=== PATIENT | female | born 1960 | race Caucasian/White ===

== ENCOUNTER 2018-11-09 12:05 | Inpatient (IN) | payer OTHER ==
[~2018-11-09] VITALS: Ht 157.5 cm; Wt 95.0 kg
[2018-11-09] MEDS ORDERED: SOD CHLORIDE 0.9% 1,000 ML IV STA (12:09)
[2018-11-09] MEDS ORDERED: ONDANSETRON 4 MG INJ IV STA (12:14)
[2018-11-09] MEDS ORDERED: morphine 4 MG/ML VIAL IV STA (12:14)
[2018-11-09] MEDS ORDERED: MINO100C PO (13:34)
[2018-11-09] MEDS ORDERED: METR250T31 PO (13:34)
[2018-11-09] MEDS ORDERED: ONDANSETRON 4 MG INJ IV PRN (15:00)
[2018-11-09] MEDS ORDERED: ACETAMINOPHEN 325 MG TAB PO PRN (15:00)
[2018-11-09] MEDS ORDERED: NACL 0.9% 3 ML SYG IV SCH (15:30)
[2018-11-09] MEDS: ONDANSETRON 4 MG INJ IV PRN (15:44)
[2018-11-09] MEDS ORDERED: SODIUM CHLORIDE 0.9% 1L BAG IV* STA (15:56)
[2018-11-09] MEDS ORDERED: PIPER-TAZO 3.375 GM IV (PMX) 100 ML IVPB STA (15:56)
--- NOTE | 2018-11-09 16:00 | ERD ---
ER Documentation Chief Complaint Chief Complaint DIZZINESS AND VOMITING TODAY HPI Patient is a 58-year-old female with prediabetes who presents with nausea and vomiting. She was brought in by ambulance. She felt weak and dizzy. She has felt sick for the past few days. She was bradycardic in the 40s and her blood pressure was low per paramedics. The blood pressure has improved upon arrival. The patient has had no treatment as of yet. The patient has abdominal pain diffusely. She has no fevers. Upon review of old medical records this is the patient's first visit to the emergency department. ROS All systems reviewed and are negative except as per history of present illness. Medications Home Meds Reported Medications Minocycline Hcl* (Minocycline Hcl*) 100 Mg Capsule, 100 MG PO BID, CAP 11/09/18 Metronidazole* (Metronidazole*) 250 Mg Tablet, 250 MG PO QID, TAB 11/09/18 Allergies Allergies: Coded Allergies: No Known Allergy (Unverified , 11/09/18) PMhx/Soc Medical and Surgical Hx: pt denies Medical Hx Hx Alcohol Use: No Hx Substance Use: No Hx Tobacco Use: No Smoking Status: Never smoker FmHx Family History: No coronary disease Physical Exam Vitals Vital Signs Date Temp Pulse Resp B/P (MAP) Pulse Ox O2 O2 Flow FiO2 Time Delivery Rate 11/09/18 97.8 48 18 98/64 (75) 100 Room Air 13:13 11/09/18 97.8 50 18 92/70 (77) 100 12:05 Physical Exam Const: No acute distress Head: Atraumatic Eyes: Normal Conjunctiva ENT: Normal External Ears, Nose and Mouth. Neck: Full range of motion. No meningismus. Resp: Clear to auscultation bilaterally Cardio: Regular rate and rhythm, no murmurs Abd: Diffuse tenderness to palpation without rebound or guarding Skin: No petechiae or rashes Back: No midline or flank tenderness Ext: No cyanosis, or edema Neur: Awake and alert Psych: Normal Mood and Affect Result Diagram: 11/09/18 1229 11/09/18 1229 Results 24 hrs Laboratory Tests Test 11/09/18 12:29 White Blood Count 12.5 10^3/ul Red Blood Count 4.13 10^6/ul Hemoglobin 13.0 g/dl Hematocrit 39.7 % Mean Corpuscular Volume 96.1 fl Mean Corpuscular Hemoglobin 31.5 pg Mean Corpuscular Hemoglobin Concent 32.7 g/dl Red Cell Distribution Width 13.9 % Platelet Count 195 10^3/UL Mean Platelet Volume 10.7 fl Immature Granulocytes % 0.500 % Neutrophils % 74.4 % Lymphocytes % 19.0 % Monocytes % 5.2 % Eosinophils % 0.6 % Basophils % 0.3 % Nucleated Red Blood Cells % 0.0 /100WBC Immature Granulocytes # 0.060 10^3/ul Neutrophils # 9.3 10^3/ul Lymphocytes # 2.4 10^3/ul Monocytes # 0.7 10^3/ul Eosinophils # 0.1 10^3/ul Basophils # 0.0 10^3/ul Nucleated Red Blood Cells # 0.0 10^3/ul Sodium Level 142 mmol/L Potassium Level 3.5 mmol/L Chloride Level 108 mmol/L Carbon Dioxide Level 23 mmol/L Anion Gap 11 Blood Urea Nitrogen 10 mg/dl Creatinine 0.59 mg/dl Est Glomerular Filtrat Rate mL/min > 60 mL/min Glucose Level 164 mg/dl Calcium Level 9.4 mg/dl Total Bilirubin 1.3 mg/dl Direct Bilirubin 0.80 mg/dl Indirect Bilirubin 0.5 mg/dl Aspartate Amino Transf (AST/SGOT) 192 IU/L Alanine Aminotransferase (ALT/SGPT) 189 IU/L Alkaline Phosphatase 184 IU/L Lactate Dehydrogenase 776 IU/L Troponin I < 0.012 ng/ml Total Protein 7.5 g/dl Albumin 4.1 g/dl Lipase 04666 U/L Current Medications Medications Dose Sig/Ofelia Start Time Status Last (Trade) Ordered Route PRN Stop Time Admin Dose Reason Admin Sodium 1,000 ml @ Q1H STAT 11/09/18 DC 11/09/18 Chloride 1,000 mls/hr IV 12:09 12:42 11/09/18 13:08 Morphine 4 mg ONCE STAT 11/09/18 DC Sulfate IV 12:14 (morphine) 11/09/18 12:16 Ondansetron 4 mg ONCE STAT 11/09/18 DC 11/09/18 HCl (Zofran IV 12:14 12:42 Inj) 11/09/18 12:16 Ondansetron 4 mg ER BRIDGE 11/09/18 DC HCl (Zofran PRN IV 15:00 Inj) NAUSEA/VOMITI 11/09/18 15:23 NG 650 mg ER BRIDGE 11/09/18 Acetaminophen PRN PO 15:00 (Tylenol .MILD PAIN 11/10/18 14:59 Tab) 1-3 OR TEMP Sodium 1,000 ml @ Q6H40M IV 11/09/18 Chloride 150 mls/hr 15:30 IV Flush 3 ml PER 11/09/18 (NS 3 ml) PROTOCOL IV 15:30 Ondansetron 4 mg Q6H PRN 11/09/18 HCl (Zofran IV 15:30 Inj) NAUSEA/VOMITI NG Morphine 2 mg Q4H PRN 11/09/18 Sulfate IV .SEVERE 15:30 (morphine) PAIN 7-10 Heparin 5,000 unit Q12 SC 11/09/18 Sodium 21:00 (Porcine) (Heparin (5000 Units/1ml)) Procedures/MDM Ultrasound read by radiology. CT abdomen pelvis shows pancreatitis with phlegmon per radiology. EKG read by me: Rate/Rhythm: Sinus bradycardia Intervals: Normal Impression: Bradycardia without ischemia Patient is a 58-year-old female who presents with pancreatitis. The patient was found to have a lipase of greater than 41,000. At this point I doubt sepsis. Lactic acid and blood cultures have been ordered as well as 30 ml/kg fluid bolus and Zosyn. The patient will be admitted to the care of the panel team to a telemetry bed as the patient also has bradycardia. However the bradycardia is sinus at this time. Critical Care: Time: 35 minutes excluding all billable procedures. Treatments/Evaluations: Close monitoring and treatment of unstable vital signs, cardiorespiratory, and neurologic status, while maintaining tight balance of fluid, respiratory, and cardiac interventions. Departure Diagnosis: Primary Impression: Pancreatitis Chronicity: acute Pancreatitis type: unspecified pancreatitis type Acute pancreatitis complication: unspecified Qualified Codes: K85.90 - Acute pancreatitis without necrosis or infection, unspecified Additional Impression: Bradycardia Condition: Serious ILEANA TERESA MD Nov 09, 2018 16:00
--- NOTE | 2018-11-09 16:03 | HP ---
Date/Time of Note Date/Time of Note DATE: 11/09/18 TIME: 16:01 Assessment/Plan VTE Prophylaxis SCD applied (from Nsg): Yes Pharmacological prophylaxis: heparin Lines/Catheters IV Catheter Type (from Nrsg): Saline Lock Assessment/Plan Hospital Course 58 yo female with acute pancreatitis likely from gall stone with CT showing poss ible phlegmon - Continue IV fluids - Zosyn given finding of phlegmon - ERCP consideration per Dr Ferguson - Eventual cholecystectomy per gen surgery - Pain control Result Diagram: 11/09/18 1229 11/09/18 1229 Results 24hrs Laboratory Tests Test 11/09/18 12:29 White Blood Count 12.5 H Red Blood Count 4.13 L Hemoglobin 13.0 Hematocrit 39.7 Mean Corpuscular Volume 96.1 Mean Corpuscular Hemoglobin 31.5 Mean Corpuscular Hemoglobin Concent 32.7 Red Cell Distribution Width 13.9 Platelet Count 195 Mean Platelet Volume 10.7 H Immature Granulocytes % 0.500 H Neutrophils % 74.4 Lymphocytes % 19.0 Monocytes % 5.2 Eosinophils % 0.6 Basophils % 0.3 Nucleated Red Blood Cells % 0.0 Immature Granulocytes # 0.060 H Neutrophils # 9.3 H Lymphocytes # 2.4 Monocytes # 0.7 Eosinophils # 0.1 Basophils # 0.0 Nucleated Red Blood Cells # 0.0 Sodium Level 142 Potassium Level 3.5 Chloride Level 108 Carbon Dioxide Level 23 Anion Gap 11 Blood Urea Nitrogen 10 Creatinine 0.59 Est Glomerular Filtrat Rate mL/min > 60 Glucose Level 164 Calcium Level 9.4 Total Bilirubin 1.3 Direct Bilirubin 0.80 H Indirect Bilirubin 0.5 Aspartate Amino Transf (AST/SGOT) 192 H Alanine Aminotransferase (ALT/SGPT) 189 H Alkaline Phosphatase 184 H Lactate Dehydrogenase 776 H Troponin I < 0.012 Total Protein 7.5 Albumin 4.1 Lipase 83515 H HPI/ROS Admit Date/Time Admit Date/Time Hx of Present Illness 58 yo female wtih abdominal pain and nausea Was in usual state of good health until today. Developed pain in epigastrium and has had vomiting. No fevers. Previously completely well. In ED found to have acute pancreatitis and CT showing possible phlegmon ROS Constitutional: no complaints, improved Eyes: no complaints ENT: no complaints Respiratory: no complaints Cardiovascular: no complaints Gastrointestinal: no complaints Genitourinary: no complaints Musculoskeletal: no complaints Skin: no complaints Neurologic: no complaints Endocrine: no complaints Lymphatic: no complaints Psychological: no complaints, nl mood/affect Immunologic: no complaints PMH/Family/Social Past Medical History Medical History: no pertinent history Medications Current Medications Acetaminophen (Tylenol Tab) 650 mg ER BRIDGE PRN PO .MILD PAIN 1-3 OR TEMP; Start 11/09/18 at 15:00; Stop 11/10/18 at 14:59 Sodium Chloride 1,000 ml @ 150 mls/hr Q6H40M IV ; Start 11/09/18 at 15:30 IV Flush (NS 3 ml) 3 ml PER PROTOCOL IV ; Start 11/09/18 at 15:30 Ondansetron HCl (Zofran Inj) 4 mg Q6H PRN IV NAUSEA/VOMITING; Start 11/09/18 at 15:30 Morphine Sulfate (morphine) 2 mg Q4H PRN IV .SEVERE PAIN 7-10; Start 11/09/18 at 15:30 Heparin Sodium (Porcine) (Heparin (5000 Units/1ml)) 5,000 unit Q12 SC ; Start 11/09/18 at 21:00 Piperacillin Sod/ Tazobactam Sod 100 ml @ 200 mls/hr ONCE STAT IVPB ; Start 11/09/18 at 15:56; Stop 11/09/18 at 16:25 Coded Allergies: No Known Allergy (Unverified , 11/09/18) Past Surgical History Past Surgical Hx: no surgical history Family History Significant Family History: no pertinent family hx Social History Alcohol Use: none Smoking Status: Never smoker Drug Use: none Exam/Review of Systems Vital Signs Vitals Vital Signs Date Temp Pulse Resp B/P (MAP) Pulse Ox O2 O2 Flow FiO2 Time Delivery Rate 11/09/18 97.8 48 18 98/64 (75) 100 Room Air 13:13 Exam Constitutional: alert, oriented, well developed Psych: no complaints, nl mood/affect Head: normocephalic, atraumatic Eyes: nl conjunctiva, EOMI, nl lids, nl sclera, PERRL ENMT: nl external ears & nose, nl lips & teeth, nl nasal mucosa & septum Neck: supple, non-tender Respiratory: clear to auscultation, normal air movement Cardiovascular: regular rate and rhythm, nl pulses Gastrointestinal: soft, nl liver, spleen, non-tender Musculoskeletal: nl extremities to inspection Extremities: normal pulses Neurological: NETWORK MGR II-XII intact, nl mental status, nl speech, nl strength Skin: nl turgor; No rash or lesions Lymph: nl lymph nodes DONNY VERDUGO MD Nov 09, 2018 16:03
[2018-11-09] MEDS: PIPER-TAZO 3.375 GM IV (PMX) 100 ML IVPB SCH ×2 (16:30→22:00)
--- NOTE | 2018-11-09 17:13 | CONS ---
Assessment/Plan Assessment/Plan Hospital Course (Demo Recall) 1. Recurrent pancreatitis: Likely 2/2 gallstones; imaging: calcified stone and sludge within the gallbladder, dilated common bile and hepatic ducts, as well as acute pancreatitis with phlegmon in pancreatic bed, mesentery, left anterior pararenal space -Aggressive IV fluids -N.p.o. with early refeeding> per GI -MRCP/ERCP> GI consult -abx 2. Cholelithiasis: -Eventual cholecystectomy once #1 resolved 3. Elevated direct bilirubin with transaminitis: -As above -Trend 4. Leukocytosis: Likely 2/2 #1 -As above -Trend 5.Mild hepatomegaly with fatty liver -Highly encourage weight loss -Diet and exercise optimization 6. Severe obesity BMI: 38 -diet and exercise optimization -encourage weight loss Thank you. Patient seen and examined in collaboration with Dr. Nish Wiley. Consultation Date/Type/Reason Admit Date/Time Date of Consultation: Nov 09, 2018 Type of Consult Surgical Reason for Consultation Gallstone pancreatitis Requesting Provider: DONNY VERDUGO MD Date/Time of Note DATE: 11/09/18 TIME: 16:54 Hx of Present Illness Haley Munoz is a 58-year-old woman with past medical history of prediabetes, obesity, cholelithiasis and pancreatitis within the last year, who presented to ED with complaints of nausea and vomiting, nonbloody emesis, x 1 day. Associated symptoms include abdominal pain in the midepigastric region, dizziness and generalized weakness. She was brought in by paramedics who also noted bradycardia and hypotension. No reports of fevers, chills, congested cough, chest pain, palpitations, diarrhea, change in bowel or bladder habits, hematemesis, hematochezia or melena, change in skin or scleral coloring. Abdominal imaging showed calcified stone and sludge within the gallbladder, dilated common bile and hepatic ducts, as well as acute pancreatitis with phlegmon in pancreatic bed, mesentery, left anterior pararenal space. Laboratory findings pertinent for elevated WBC, as well as elevated direct bilirubin, transaminases, as well as lipase. General surgery was asked to evaluate. 12 point review of systems was performed and is negative except for as stated in HPI. Past Medical History As above Home Meds Reported Medications Minocycline Hcl* (Minocycline Hcl*) 100 Mg Capsule, 100 MG PO BID, CAP 11/09/18 Metronidazole* (Metronidazole*) 250 Mg Tablet, 250 MG PO QID, TAB 11/09/18 Medications Current Medications Acetaminophen (Tylenol Tab) 650 mg ER BRIDGE PRN PO .MILD PAIN 1-3 OR TEMP; Start 11/09/18 at 15:00; Stop 11/10/18 at 14:59 Sodium Chloride 1,000 ml @ 150 mls/hr Q6H40M IV ; Start 11/09/18 at 15:30 IV Flush (NS 3 ml) 3 ml PER PROTOCOL IV ; Start 11/09/18 at 15:30 Ondansetron HCl (Zofran Inj) 4 mg Q6H PRN IV NAUSEA/VOMITING; Start 11/09/18 at 15:30 Morphine Sulfate (morphine) 2 mg Q4H PRN IV .SEVERE PAIN 7-10; Start 11/09/18 at 15:30 Heparin Sodium (Porcine) (Heparin (5000 Units/1ml)) 5,000 unit Q12 SC ; Start 11/09/18 at 21:00 Piperacillin Sod/ Tazobactam Sod 100 ml @ 200 mls/hr Q8 IVPB ; Start 11/09/18 at 16:30 Allergies: Coded Allergies: No Known Allergy (Unverified , 11/09/18) Past Surgical History Past Surgical Hx: no surgical history Family History Significant Family History: no pertinent family hx Social History Alcohol Use: none Smoking Status: Never smoker Drug Use: none Exam/Review of Systems Exam Vitals Vital Signs Date Temp Pulse Resp B/P (MAP) Pulse Ox O2 O2 Flow FiO2 Time Delivery Rate 11/09/18 97.8 48 18 98/64 (75) 100 Room Air 13:13 Constitutional: alert, oriented, obese Psych: nl mood/affect; No anxiety Head: normocephalic, atraumatic Eyes: nl conjunctiva, EOMI, nl lids, nl sclera ENMT: nl external ears & nose, nl lips & teeth, mucosa pink and moist Neck: supple, non-tender; No jvd Respiratory: normal air movement; No congested cough, No labored breathing Cardiovascular: nl pulses; No edema Gastrointestinal: soft, distended (Minimal), tender (Bilateral upper quadrants) Genitourinary - Female: nl external genitalia Musculoskeletal: nl extremities to inspection, nl gait and stance Extremities: normal pulses Neurological: nl mental status, nl speech, nl strength Skin: No rash or lesions Lymph: nl lymph nodes Results Result Diagram: 11/09/18 1229 11/09/18 1229 Results 24hrs Laboratory Tests Test 11/09/18 12:29 White Blood Count 12.5 H Red Blood Count 4.13 L Hemoglobin 13.0 Hematocrit 39.7 Mean Corpuscular Volume 96.1 Mean Corpuscular Hemoglobin 31.5 Mean Corpuscular Hemoglobin Concent 32.7 Red Cell Distribution Width 13.9 Platelet Count 195 Mean Platelet Volume 10.7 H Immature Granulocytes % 0.500 H Neutrophils % 74.4 Lymphocytes % 19.0 Monocytes % 5.2 Eosinophils % 0.6 Basophils % 0.3 Nucleated Red Blood Cells % 0.0 Immature Granulocytes # 0.060 H Neutrophils # 9.3 H Lymphocytes # 2.4 Monocytes # 0.7 Eosinophils # 0.1 Basophils # 0.0 Nucleated Red Blood Cells # 0.0 Sodium Level 142 Potassium Level 3.5 Chloride Level 108 Carbon Dioxide Level 23 Anion Gap 11 Blood Urea Nitrogen 10 Creatinine 0.59 Est Glomerular Filtrat Rate mL/min > 60 Glucose Level 164 Calcium Level 9.4 Total Bilirubin 1.3 Direct Bilirubin 0.80 H Indirect Bilirubin 0.5 Aspartate Amino Transf (AST/SGOT) 192 H Alanine Aminotransferase (ALT/SGPT) 189 H Alkaline Phosphatase 184 H Lactate Dehydrogenase 776 H Troponin I < 0.012 Total Protein 7.5 Albumin 4.1 Lipase 07282 H Medications Medication Current Medications Acetaminophen (Tylenol Tab) 650 mg ER BRIDGE PRN PO .MILD PAIN 1-3 OR TEMP; Start 11/09/18 at 15:00; Stop 11/10/18 at 14:59 Sodium Chloride 1,000 ml @ 150 mls/hr Q6H40M IV ; Start 11/09/18 at 15:30 IV Flush (NS 3 ml) 3 ml PER PROTOCOL IV ; Start 11/09/18 at 15:30 Ondansetron HCl (Zofran Inj) 4 mg Q6H PRN IV NAUSEA/VOMITING; Start 11/09/18 at 15:30 Morphine Sulfate (morphine) 2 mg Q4H PRN IV .SEVERE PAIN 7-10; Start 11/09/18 at 15:30 Heparin Sodium (Porcine) (Heparin (5000 Units/1ml)) 5,000 unit Q12 SC ; Start 11/09/18 at 21:00 Piperacillin Sod/ Tazobactam Sod 100 ml @ 200 mls/hr Q8 IVPB ; Start 11/09/18 at 16:30 SURENDRA CALDERÓN NP Nov 09, 2018 17:13
--- NOTE | 2018-11-09 18:42 | CONS ---
DATE OF ADMISSION: 11/09/2018 DATE OF CONSULTATION: TYPE OF CONSULTATION: Gastroenterology. Dear Dr. Verdugo: Thank you for asking me to see Mrs. Francisco Javier Flores in GI consultation. HISTORY OF PRESENT ILLNESS: The patient as you know is a 58-year-old -[place] female who dev eloped abdominal pain 3 days ago. At that time, she had some fever, she has nausea but no vomiting, no GI bleeding, no diarrhea. Pain is mostly in the upper abdomen. The patient did not have any pain of this kind in the past. Pain is kind of very severe pain and she still continues to have the pain . No past medical history of abdominal pain, gallbladder disease or GI problems of any kind. REVIEW OF SYSTEM: Totally unremarkable. SOCIAL HISTORY: The patient does not smoke or drink. PAST SURGICAL HISTORY: None in the past. PHYSICAL EXAMINATION: GENERAL: The patient is a 58-year-old female who at this time, she is alert and well built. VITAL SIGNS: Temperature 97.8, blood pressure is 98/64. CARDIOVASCULAR: Normal heart sounds. RESPIRATORY: Normal breath sounds. ABDOMEN: Shows soft abdomen with no palpable masses, no tenderness, no distention. LABORATORY WORKUP: WBC count is 12,500, hemoglobin 13.0, hematocrit 39.7, neutrophils 74, lymphocyte s 19. Lipase is a 41,083. Bilirubin 1.3, direct is 0.8, AST 192, ALT 189, alkaline phosphatase is 1 84. LDH is 776. DIAGNOSTIC DATA: CAT scan of the abdomen shows evidence of cholelithiasis and sludge, distended gall bladder. Gallbladder wall is not thickened. Common bile duct is dilated up to 1.3 cm, duct is 6.8 mm. Acute pancreatitis with phlegmon noted in the pancreatic bed, trace fluid in the left parac olic gutter. Liver is minimally enlarged. Mild degenerative enthesopathy noted on the spine. Ultra sound of the gallbladder shows calcified stone and sludge in the gallbladder with minimally dilated c ommon bile duct. Fatty liver is noted as well. CLINICAL IMPRESSION: The patient seems to be presenting with history of acute cholecystitis. There is evidence of dilated common bile duct and common hepatic duct indicating that this could be choledo cholithiasis. She could have impacted ampullary stone causing both pancreatitis and abnormal liver f unctions. PLAN: At this time, it appears to be reasonable that ERCP needs to be performed to rule out choledoc holithiasis and remove the stones if any found and later, CBD stent. Once again, Dr. Verdugo, thank you for this consultation. Dictated By: JESSICA ANTOINE MD NC/NTS Conf#: [id number] DID#: [id number] CC: ILEANA TERESA MD; DONNY VERDUGO MD;*End*
[2018-11-09] MEDS: HEPARIN 5,000 UNIT/1 ML VIAL SC SCH (21:00)
[2018-11-09] MEDS: SOD CHLORIDE 0.45% 1,000 ML IV SCH (22:10)
[2018-11-09 23:38] VITALS: PULSE 56
[2018-11-09 23:42] VITALS: BP 121/58; PULSE 55; RESP 18
[2018-11-10] VITALS (20 sets, daily range): BP systolic 115–146; BP diastolic 68–88; PULSE 61–79; RESP 15–23; Ht 157.5 cm; Wt 95.0 kg
[2018-11-10] MEDS: SOD CHLORIDE 0.45% 1,000 ML IV SCH ×4 (00:19→13:59)
[2018-11-10] MEDS: ONDANSETRON 4 MG INJ IV PRN ×2 (02:48→15:46)
[2018-11-10] MEDS: morphine 2 MG INJ IV PRN ×2 (02:48→15:46)
[2018-11-10] MEDS: PIPER-TAZO 3.375 GM IV (PMX) 100 ML IVPB SCH ×3 (06:20→22:14)
[2018-11-10] MEDS ORDERED: NEOSTIGMINE 10 MG INJ ONE (07:00)
[2018-11-10] MEDS: HEPARIN 5,000 UNIT/1 ML VIAL SC SCH ×2 (08:55→21:00)
--- NOTE | 2018-11-10 14:25 | PN ---
Date/Time of Note Date/Time of Note DATE: 11/10/18 TIME: 14:24 Assessment/Plan VTE Prophylaxis Risk score (from Nsg)>0 risk: 2 Pharmacological prophylaxis: heparin Lines/Catheters IV Catheter Type (from Nrsg): Peripheral IV Urinary Cath still in place: No Assessment/Plan Hospital Course 58 yo female with acute pancreatitis likely from gallstone with CT showing possible phlegmon - Continue IV fluids - Zosyn given finding of phlegmon - ERCP consideration per Dr Ferguson - Eventual cholecystectomy per gen surgery - Pain control Prophylaxis: Heparin Result Diagram: 11/10/18 0511 11/10/18 0511 Results 24hrs Laboratory Tests Test 11/09/18 16:32 11/09/18 19:12 11/09/18 21:45 11/10/18 00:27 Lactic Acid Level 1.5 1.4 1.6 Creatine Kinase 75 69 Creatine Kinase 0.4 0.4 Index Creatinine Kinase MB 0.30 0.27 (Mass) Troponin I < 0.012 < 0.012 Test 11/10/18 05:11 White Blood Count 9.6 # Red Blood Count 3.95 L Hemoglobin 12.5 Hematocrit 37.8 Mean Corpuscular 95.7 Volume Mean Corpuscular 31.6 Hemoglobin Mean Corpuscular 33.1 Hemoglobin Concent Red Cell 14.2 Distribution Width Platelet Count 186 Mean Platelet Volume 10.7 H Immature 0.400 Granulocytes % Neutrophils % 83.5 H Lymphocytes % 10.5 L Monocytes % 5.5 Eosinophils % 0.0 Basophils % 0.1 Nucleated Red Blood 0.0 Cells % Immature 0.040 H Granulocytes # Neutrophils # 8.0 H Lymphocytes # 1.0 Monocytes # 0.5 Eosinophils # 0.0 Basophils # 0.0 Nucleated Red Blood 0.0 Cells # Prothrombin Time 14.0 Prothrombin Time 1.1 Ratio INR International 1.07 Normalized Ratio Sodium Level 143 Potassium Level 3.8 Chloride Level 107 Carbon Dioxide Level 26 Anion Gap 10 Blood Urea Nitrogen 12 Creatinine 0.55 Est Glomerular > 60 Filtrat Rate mL/min Glucose Level 116 # Hemoglobin A1c 5.7 Calcium Level 9.0 Total Bilirubin 0.5 Direct Bilirubin 0.00 # Indirect Bilirubin 0.5 Aspartate Amino 109 H Transf (AST/SGOT) Alanine 145 H Aminotransferase (AL T/SGPT) Alkaline Phosphatase 139 H Total Protein 7.0 Albumin 3.6 Globulin 3.40 H Albumin/Globulin 1.05 Ratio Lipase 3972 H Subjective 24 Hr Interval Summary Gastrointestinal: pain Exam/Review of Systems Exam Vitals Vital Signs Date Temp Pulse Resp B/P (MAP) Pulse Ox O2 O2 Flow FiO2 Time Delivery Rate 11/10/18 67 12:37 11/10/18 98.9 19 131/72 100 11:43 (91) 11/09/18 Room Air 23:07 Intake and Output 11/09/18 11/09/18 11/10/18 1515:00 23:00 07:00 IntakeIntake Total 100 ml 1000 ml BalanceBalance 100 ml 1000 ml Constitutional: alert, oriented Respiratory: clear to auscultation Cardiovascular: regular rate and rhythm Gastrointestinal: soft; No distended Musculoskeletal: nl extremities to inspection Results Results 24hrs Laboratory Tests Test 11/09/18 16:32 11/09/18 19:12 11/09/18 21:45 11/10/18 00:27 Lactic Acid Level 1.5 1.4 1.6 Creatine Kinase 75 69 Creatine Kinase 0.4 0.4 Index Creatinine Kinase MB 0.30 0.27 (Mass) Troponin I < 0.012 < 0.012 Test 11/10/18 05:11 White Blood Count 9.6 # Red Blood Count 3.95 L Hemoglobin 12.5 Hematocrit 37.8 Mean Corpuscular 95.7 Volume Mean Corpuscular 31.6 Hemoglobin Mean Corpuscular 33.1 Hemoglobin Concent Red Cell 14.2 Distribution Width Platelet Count 186 Mean Platelet Volume 10.7 H Immature 0.400 Granulocytes % Neutrophils % 83.5 H Lymphocytes % 10.5 L Monocytes % 5.5 Eosinophils % 0.0 Basophils % 0.1 Nucleated Red Blood 0.0 Cells % Immature 0.040 H Granulocytes # Neutrophils # 8.0 H Lymphocytes # 1.0 Monocytes # 0.5 Eosinophils # 0.0 Basophils # 0.0 Nucleated Red Blood 0.0 Cells # Prothrombin Time 14.0 Prothrombin Time 1.1 Ratio INR International 1.07 Normalized Ratio Sodium Level 143 Potassium Level 3.8 Chloride Level 107 Carbon Dioxide Level 26 Anion Gap 10 Blood Urea Nitrogen 12 Creatinine 0.55 Est Glomerular > 60 Filtrat Rate mL/min Glucose Level 116 # Hemoglobin A1c 5.7 Calcium Level 9.0 Total Bilirubin 0.5 Direct Bilirubin 0.00 # Indirect Bilirubin 0.5 Aspartate Amino 109 H Transf (AST/SGOT) Alanine 145 H Aminotransferase (AL T/SGPT) Alkaline Phosphatase 139 H Total Protein 7.0 Albumin 3.6 Globulin 3.40 H Albumin/Globulin 1.05 Ratio Lipase 3972 H Medications Medication Current Medications Acetaminophen (Tylenol Tab) 650 mg ER BRIDGE PRN PO .MILD PAIN 1-3 OR TEMP; Start 11/09/18 at 15:00; Stop 11/10/18 at 14:59 Sodium Chloride 1,000 ml @ 150 mls/hr Q6H40M IV Last administered on 11/10/18 13:59; Admin Dose 150 MLS/HR; Start 11/09/18 at 15:30 IV Flush (NS 3 ml) 3 ml PER PROTOCOL IV ; Start 11/09/18 at 15:30 Ondansetron HCl (Zofran Inj) 4 mg Q6H PRN IV NAUSEA/VOMITING Last administered on 11/10/18 02:48; Admin Dose 4 MG; Start 11/09/18 at 15:30 Morphine Sulfate (morphine) 2 mg Q4H PRN IV .SEVERE PAIN 7-10 Last administered on 11/10/18 02:48; Admin Dose 2 MG; Start 11/09/18 at 15:30 Heparin Sodium (Porcine) (Heparin (5000 Units/1ml)) 5,000 unit Q12 SC Last administered on 11/10/18 08:55; Admin Dose 5,000 UNIT; Start 11/09/18 at 21:00 Piperacillin Sod/ Tazobactam Sod 100 ml @ 200 mls/hr Q8 IVPB Last administered on 11/10/18 13:48; Admin Dose 200 MLS/HR; Start 11/09/18 at 16:30 KORIN HAINES Nov 10, 2018 14:25
[2018-11-10] MEDS ORDERED: INDOMETHACIN 50 MG SUPP PR ONE (17:30)
[2018-11-10] MEDS ORDERED: IOHEXOL 300MG/ML 30 ML BTL ONE (18:10)
--- NOTE | 2018-11-10 19:41 | PREAC ---
Date/Time of Note Date/Time of Note DATE: 11/10/18 TIME: 19:40 Anesthesia Eval and Record Evaluation Time Pre-Procedure Interview DATE: 11/10/18 TIME: 19:40 Age 58 Sex female NPO: 8 hrs Preoperative diagnosis CBD stone Planned procedure ERCP Past Medical History Past Medical History: Includes Endo: Diabetes GI: Morbid obesity Surgery & Anesthesia Issues No known issue Meds Anticoagulation: No Beta Darlene within 24 hr: No Reason Beta Darlene not given: Pt. not on B-Darlene Reported Medications Minocycline Hcl* (Minocycline Hcl*) 100 Mg Capsule, 100 MG PO BID, CAP 11/09/18 Metronidazole* (Metronidazole*) 250 Mg Tablet, 250 MG PO QID, TAB 11/09/18 Current Medications Sodium Chloride 1,000 ml @ 150 mls/hr Q6H40M IV Last administered on 11/10/18at 13:59; Admin Dose 150 MLS/HR; Start 11/09/18 at 15:30 IV Flush (NS 3 ml) 3 ml PER PROTOCOL IV ; Start 11/09/18 at 15:30 Ondansetron HCl (Zofran Inj) 4 mg Q6H PRN IV NAUSEA/VOMITING Last administered on 11/10/18at 15:46; Admin Dose 4 MG; Start 11/09/18 at 15:30 Morphine Sulfate (morphine) 2 mg Q4H PRN IV .SEVERE PAIN 7-10 Last administered on 11/10/18at 15:46; Admin Dose 2 MG; Start 11/09/18 at 15:30 Heparin Sodium (Porcine) (Heparin (5000 Units/1ml)) 5,000 unit Q12 SC Last administered on 11/10/18at 08:55; Admin Dose 5,000 UNIT; Start 11/09/18 at 21:00 Piperacillin Sod/ Tazobactam Sod 100 ml @ 200 mls/hr Q8 IVPB Last administered on 11/10/18at 13:48; Admin Dose 200 MLS/HR; Start 11/09/18 at 16:30 Meds reviewed: Yes Allergies Coded Allergies: No Known Allergy (Unverified , 11/09/18) Allergies Reviewed: Yes Labs/Studies Labs Reviewed: Reviewed by anesthesiologist Result Diagram: 11/10/18 0511 11/10/18 0511 Laboratory Tests 11/10/18 05:11 test: N/A Pre-procedure Exam Last vitals Vital Signs Date Temp Pulse Resp B/P (MAP) Pulse Ox O2 O2 Flow FiO2 Time Delivery Rate 11/10/18 63 18:48 11/10/18 99.1 20 125/68 99 15:41 (87) 11/09/18 Room Air 23:07 Airway: Adequate mouth opening, Adequate thyromental dist Mallampati: Mallampati II Teeth: Normal Lung: Normal Heart: Normal ASA Physical Status ASA physical status: 2 Emergency: None Planned Anesthetic General/MAC: ETT Pre-operative Attestations Prior to commencing anesthesia and surgery, the patient was re-evaluated, there was verification of: *The patient's identity *The results of appropriate recent lab work and preoperative vital signs *The above evaluation not changing prior to induction *Anesthetic plan, risk benefits, alternative and complications discussed with patient/family; questions answered; patient/family understands, accepts and wishes to proceed. PRABHU SERNA Nov 10, 2018 19:41
[2018-11-10] MEDS ORDERED: FENTAnyl 50 MCG/ML VIAL IV PRN ×2 (20:00)
[2018-11-10] MEDS ORDERED: ALBUTEROL 0.083% (NEB) 2.5 MG/3 ML AMP HHN PRN (20:00)
[2018-11-10] MEDS ORDERED: HYDROmorphONE 1 MG/5 ML IV SYRINGE IV PRN ×2 (20:00)
[2018-11-10] MEDS ORDERED: DIPHENHYDRAMINE 50 MG INJ IV PRN (20:00)
[2018-11-10] MEDS ORDERED: ONDANSETRON 4 MG INJ IV PRN (20:00)
[2018-11-10] MEDS ORDERED: MEPERIDINE 25 MG INJ IV PRN (20:00)
[2018-11-10] MEDS ORDERED: METOCLOPRAMIDE 10 MG INJ IV PRN (20:00)
[2018-11-10] MEDS ORDERED: ONDANSETRON 4 MG INJ ONE (20:02)
[2018-11-10] MEDS ORDERED: ROCURONIUM 50 MG INJ ONE (20:02)
[2018-11-10] MEDS ORDERED: FENTAnyl 50 MCG/ML VIAL ONE (20:02)
[2018-11-10] MEDS ORDERED: PROPOFOL 20 ML ONE (20:02)
[2018-11-10] MEDS ORDERED: CEFAZOLIN 1 GM INJ ONE (20:02)
[2018-11-10] MEDS ORDERED: GLYCOPYRROLATE 0.4 MG INJ ONE (20:02)
[2018-11-10] MEDS ORDERED: MIDAZOLAM 1 MG/ML 2 ML INJ ONE (20:02)
[2018-11-10] MEDS ORDERED: DEXAMETHASONE 4 MG/ML 5 ML INJ ONE (20:02)
--- NOTE | 2018-11-10 20:38 | RADRPT ---
Echocardiogram Report Patient Name: Kannan JOYCE ID: [id number] : 1960 (58y 9m)Study Date: 11/10/2018 7:32:21 AM Gender: FAccession #: [id number] Tech: [place] Location: Ref.Physician: DONNY VERDUGO Height(Cm): BSA: Weight(Kg): Quality: GoodAccount #: Procedures: Echocardiographic Report: Transthoracic echocardiogram with complete 2D, M-Mode, and doppler examination. Indications: Bradycardia. Measurements: 2D/M Mode Doppler Measurement Value Normal Range Measurement Value Normal Range LVIDd 2D 4.4 [ 3.8 - 5.2 ] cm AV Peak Russ 1.9 [ 100.0 - 170.0 ] cm/sec LVIDs 2D 2.3 [ 2.2 - 3.5 ] cm AV Peak PG 15.0 [ 2.0 - 9.0 ] mmHg LVPWd 2D 1.1 [ 0.6 - 0.9 ] cm LVOT Peak Russ 1.2 [ 70.0 - 110.0 ] cm/sec IVSd 2D 1.2 [ 0.6 - 0.9 ] cm LVOT Peak PG 5.0 [ 2.0 - 6.0 ] mmHg AoR Diam 2D 2.7 [ 2.3 - 3.1 ] cm MV E Peak Russ 0.6 [ 60.0 - 130.0 ] cm/sec EDV 2D 86.8 [ 46.0 - 106.0 ] ml MV A Peak Russ 0.8 [ 100.0 - 120.0 ] cm/sec ESV 2D 18.9 [ 14.0 - 42.0 ] ml MV E/A 0.8 [ 0.8 - 1.5 ] ratio EF 2D 78.2 [ 54.0 - 74.0 ] percent MV Decel Time 257 [ 104 - 258 ] msec LA Dimen 2D 3.2 [ 2.7 - 3.8 ] cm Lat E` Russ 0.2 [ 10.0 - 15.0 ] cm/sec Lateral E/E` 3.7 [ 1.0 - 2.0 ] ratio MV E/A 0.8 [ 0.8 - 1.5 ] ratio TR Peak Russ 2.5 [ 100.0 - 280.0 ] cm/sec TR Peak PG 26.0 mmHg RVSP 29.0 [ 10.0 - 36.0 ] mmHg RA Pressure 3.0 mmHg Findings: Left Ventricle: Lower limits of normal systolic function. Normal left ventricular cavity size. Mild concentric left ventricular hypertrophy. Ejection fraction is visually estimated at 50 %. Tissue Doppler/Mitral Doppler indices are consistent with impaired relaxation (Stage I diastolic dysfunction). Right Ventricle: Normal right ventricular size. Normal right ventricular systolic function. Left Atrium: The left atrium is normal in size. Right Atrium: The right atrium is normal in size. Mitral Valve: Normal appearance and function of the mitral valve with trace physiologic regurgitation. Aortic Valve: Aortic sclerosis without significant stenosis. Trace aortic valve regurgitation. Tricuspid Valve: Normal appearance of the tricuspid valve. Estimated peak PA systolic pressure 29 mmHg. There is trace to mild tricuspid regurgitation. Pulmonic Valve: Normal pulmonic valve appearance. Pericardium: Normal pericardium with no significant pericardial effusion. Aorta: Normal aortic root. IVC: Normal size and normal respiratory collapse consistent with normal right atrial pressure. Conclusions: Lower limits of normal systolic function. Normal left ventricular cavity size. Mild concentric left ventricular hypertrophy. Ejection fraction is visually estimated at 50 %. Tissue Doppler/Mitral Doppler indices are consistent with impaired relaxation (Stage I diastolic dysfunction). Normal appearance and function of the mitral valve with trace physiologic regurgitation. Aortic sclerosis without significant stenosis. Trace aortic valve regurgitation. Normal appearance of the tricuspid valve. Estimated peak PA systolic pressure 29 mmHg. There is trace to mild tricuspid regurgitation. Electronically Signed By: Kenneth Healy 2018-11-10 20:37:49 PDT
--- NOTE | 2018-11-10 21:18 | OPR ---
Date/Time of Note Date/Time of Note DATE: 11/10/18 TIME: 21:10 Operative Report Preoperative Diagnosis cbd stone [mrcp] Postoperative Diagnosis distal cbd stricture with proximal dilatation Operation/Procedure Performed ercp sphincterotomy balloon dilatation and sweep and stent placement Surgeon see signature line Tool/Die Maker none Anesthesia Type: general Anesthesiologist: Taqueria Mullins M.D. Estimated Blood Loss: none Transfusion none Specimen none Grafts/Implants none Tubes/Drains none Complications none Pt Condition Post Procedure: stable Disposition: PACU Indications cbd stone [per mrcp] Procedure Description ercp performed distal cbd stricture noted dilated with balloon and cbd stent placed vafterv draining pus from cbd JESSICA ANTOINE MD Nov 10, 2018 21:18
--- NOTE | 2018-11-10 21:23 | PAC ---
Date/Time of Note Date/Time of Note DATE: 11/10/18 TIME: 21:23 Post-Anesthesia Notes Post-Anesthesia Note Last documented vital signs Vital Signs Date Temp Pulse Resp B/P (MAP) Pulse Ox O2 O2 Flow FiO2 Time Delivery Rate 11/10/18 63 18:48 11/10/18 99.1 20 125/68 99 15:41 (87) 11/09/18 Room Air 23:07 Activity: WNL Respiratory function: WNL Cardiovascular function: WNL Mental status: Baseline Pain reasonably controlled: Yes Hydration appropriate: Yes Nausea/Vomiting absent: Yes Taqueria Mullins M.D. Nov 10, 2018 21:23
--- NOTE | 2018-11-10 22:01 | PN ---
Date/Time of Note Date/Time of Note DATE: 11/10/18 TIME: 22:00 Assessment/Plan Lines/Catheters IV Catheter Type (from [facility] Peripheral IV Phillips in Place (from [facility]): No Exam/Review of Systems Vital Signs Vitals Vital Signs Date Temp Pulse Resp B/P (MAP) Pulse Ox O2 O2 Flow FiO2 Time Delivery Rate 11/10/18 69 16 141/85 98 Room Air 21:48 (103) 11/10/18 2.0 21:45 11/10/18 100.0 21:19 Intake and Output 11/09/18 11/09/18 11/10/18 1515:00 23:00 07:00 IntakeIntake Total 100 ml 1000 ml BalanceBalance 100 ml 1000 ml Results Result Diagram: 11/10/18 0511 11/10/18 0511 JESÚS FLEMING MD Nov 10, 2018 22:01
[2018-11-11] VITALS (8 sets, daily range): BP systolic 109–142; BP diastolic 63–85; PULSE 55–69; RESP 19–23
[2018-11-11] MEDS: SOD CHLORIDE 0.45% 1,000 ML IV SCH ×4 (00:06→21:02)
[2018-11-11] MEDS: PIPER-TAZO 3.375 GM IV (PMX) 100 ML IVPB SCH ×3 (05:23→21:03)
--- NOTE | 2018-11-11 06:37 | GILP ---
DATE OF PROCEDURE: PROCEDURE: ERCP, sphincterotomy, balloon sweep and stent placement. PREOPERATIVE DIAGNOSIS: The patient is presenting with history of what appears like a gallstone panc reatitis. MRCP showed evidence of a stone in the distal common bile duct. Procedure at this time is performed to remove the stone and put a stent. POSTOPERATIVE DIAGNOSIS: Showed evidence of a stricture in the distal common bile duct and after sph incterotomy, balloon sweeping, and after drainage of the pus from the bile duct, a CBD stent was plac ed. DESCRIPTION OF PROCEDURE: After the informed written consent was obtained, patient was intubated by anesthesiologist Dr. Mullins. While the patient was in prone position, Olympus video side-viewing duodenoscope was inserted into the oropharynx, then into the esophagus, subsequently into the stomach , and then into the duodenum. The ampulla was located in a normal location. There seems to be some elongated papillary opening noted indicating that patient may have passed a stone. By using the Dreamtome, the cannulation was attempted. It was not possible. However, common bile du ct was noted with ejection, distal common bile duct stricture noted and after changing the Dreamtome to ____, the wire was inserted through the stricture into the common bile duct and common bile duct w as dilated. The stricture was noted in the distal common bile duct near the ampulla. At this time, by using the cutting wire of the ____ sphincterotomy was performed and about 7 to 8 mm cut was made. Following the sphincterotomy, the ____ was removed and over the guidewire, a 9 x 12 stone extraction balloon was inserted into the common hepatic duct. When the balloon was inflated to the size 9, the distal common bile duct stricture was dilated. Following this dilatation, the pus and sludge were d rained from the common bile duct and following balloon sweeping and drainage of the pus, a 10 x [address]dam type of endobiliary prosthesis was inserted into the common bile duct across the ampulla into the duodenum. At this time, photographs were obtained and the procedure was terminated. PLAN: Recommend to watch the patient closely. Dictated By: JESSICA HUANG/SAHIL Conf#: [id number] DID#: [id number] CC: DONNY VERDUGO MD;*EndCC*
[2018-11-11] MEDS: HEPARIN 5,000 UNIT/1 ML VIAL SC SCH ×2 (09:20→21:04)
[2018-11-11] MEDS: morphine 2 MG INJ IV PRN ×2 (12:45→21:03)
--- NOTE | 2018-11-11 15:02 | PN ---
Date/Time of Note Date/Time of Note DATE: 11/11/18 TIME: 15:00 Assessment/Plan VTE Prophylaxis Risk score (from Nsg)>0 risk: 2 Pharmacological prophylaxis: heparin Lines/Catheters IV Catheter Type (from [facility]): Peripheral IV Urinary Cath still in place: No Assessment/Plan Hospital Course 58 yo female with acute pancreatitis likely from gallstone with CT showing possible phlegmon - Continue IV fluids - Zosyn given finding of phlegmon -Status post ERCP with evidence of a stricture in the distal common bile duct with drainage of pus from the bile duct and CBD stent placement -Cholecystectomy likely today - Pain control Prophylaxis: Heparin Result Diagram: 11/10/18 0511 11/11/18 0605 Results 24hrs Laboratory Tests Test 11/11/18 06:05 Sodium Level 140 Potassium Level 4.5 Chloride Level 109 Carbon Dioxide Level 24 Anion Gap 7 Blood Urea Nitrogen 12 Creatinine 0.49 Est Glomerular Filtrat Rate mL/min > 60 Glucose Level 110 Calcium Level 8.8 Total Bilirubin 0.4 Direct Bilirubin 0.00 Indirect Bilirubin 0.4 Aspartate Amino Transf (AST/SGOT) 66 H Alanine Aminotransferase (ALT/SGPT) 99 H Alkaline Phosphatase 116 Total Protein 7.0 Albumin 3.4 Globulin 3.60 H Albumin/Globulin Ratio 0.94 Subjective 24 Hr Interval Summary Constitutional: no complaints Gastrointestinal: pain Exam/Review of Systems Exam Vitals Vital Signs Date Temp Pulse Resp B/P (MAP) Pulse Ox O2 O2 Flow FiO2 Time Delivery Rate 11/11/18 98.6 64 20 114/66 95 Room Air 13:20 (82) 11/10/18 2.0 21:45 Intake and Output 11/10/18 11/10/18 11/11/18 1515:00 23:00 07:00 IntakeIntake Total 1700 ml 100 ml BalanceBalance 1700 ml 100 ml Constitutional: alert, oriented Respiratory: clear to auscultation Cardiovascular: regular rate and rhythm Gastrointestinal: soft, tender; No distended Musculoskeletal: nl extremities to inspection Results Results 24hrs Laboratory Tests Test 11/11/18 06:05 Sodium Level 140 Potassium Level 4.5 Chloride Level 109 Carbon Dioxide Level 24 Anion Gap 7 Blood Urea Nitrogen 12 Creatinine 0.49 Est Glomerular Filtrat Rate mL/min > 60 Glucose Level 110 Calcium Level 8.8 Total Bilirubin 0.4 Direct Bilirubin 0.00 Indirect Bilirubin 0.4 Aspartate Amino Transf (AST/SGOT) 66 H Alanine Aminotransferase (ALT/SGPT) 99 H Alkaline Phosphatase 116 Total Protein 7.0 Albumin 3.4 Globulin 3.60 H Albumin/Globulin Ratio 0.94 Medications Medication Current Medications Sodium Chloride 1,000 ml @ 150 mls/hr Q6H40M IV Last administered on 11/11/18 13:59; Admin Dose 150 MLS/HR; Start 11/09/18 at 15:30 IV Flush (NS 3 ml) 3 ml PER PROTOCOL IV ; Start 11/09/18 at 15:30 Ondansetron HCl (Zofran Inj) 4 mg Q6H PRN IV NAUSEA/VOMITING Last administered on 11/10/18 15:46; Admin Dose 4 MG; Start 11/09/18 at 15:30 Morphine Sulfate (morphine) 2 mg Q4H PRN IV .SEVERE PAIN 7-10 Last administered on 11/11/18 12:45; Admin Dose 2 MG; Start 11/09/18 at 15:30 Heparin Sodium (Porcine) (Heparin (5000 Units/1ml)) 5,000 unit Q12 SC Last administered on 11/11/18 09:20; Admin Dose 5,000 UNIT; Start 11/09/18 at 21:00 Piperacillin Sod/ Tazobactam Sod 100 ml @ 200 mls/hr Q8 IVPB Last administered on 11/11/18 13:59; Admin Dose 200 MLS/HR; Start 11/09/18 at 16:30 KORIN HAINES Nov 11, 2018 15:02
[2018-11-11] MEDS: ACETAMINOPHEN 325 MG TAB PO PRN (17:12)
--- NOTE | 2018-11-11 18:04 | PN ---
Date/Time of Note Date/Time of Note DATE: 11/11/18 TIME: 17:59 Assessment/Plan Lines/Catheters IV Catheter Type (from [facility]): Peripheral IV Phillips in Place (from [facility]): No Assessment/Plan Chief Complaint/Hosp Course 1. Recurrent pancreatitis: Likely 2/2 gallstones; imaging: calcified stone and sludge within the gallbladder, dilated common bile and hepatic ducts, as well as acute pancreatitis with phlegmon in pancreatic bed, mesentery, left anterior pararenal space; status post ERCP with Sphincterotomy, balloon dilatation and sweeping and stent placement: Drained pus from CBD -Aggressive IV fluids -Clears okay> further diet advancement per GI -abx 2. Cholelithiasis: -Eventual cholecystectomy once #1 (phlegmon) resolved> outpatient surgery 3. Elevated direct bilirubin with transaminitis: -As above -Trend 4. Leukocytosis: Likely 2/2 #1 resolved -As above -Trend 5.Mild hepatomegaly with fatty liver -Highly encourage weight loss -Diet and exercise optimization 6. Severe obesity BMI: 38 -diet and exercise optimization -encourage weight loss Thank you. Patient seen and examined in collaboration with Dr. Nish Wiley. Subjective 24 Hr Interval Summary Feels well. Status post ERCP. Lipase improved. No fevers, chills, sob, congested cough, cp, palpitations, olivares, dizziness, nausea, vomiting, diarrhea, dysuria. Exam/Review of Systems Vital Signs Vitals Vital Signs Date Temp Pulse Resp B/P (MAP) Pulse Ox O2 O2 Flow FiO2 Time Delivery Rate 11/11/18 98.6 64 20 114/66 95 Room Air 13:20 (82) 11/10/18 2.0 21:45 Intake and Output 11/10/18 11/10/18 11/11/18 1515:00 23:00 07:00 IntakeIntake Total 1700 ml 100 ml BalanceBalance 1700 ml 100 ml Exam Free Text/Dictation Constitutional: alert, oriented, obese Psych: nl mood/affect; No anxiety Head: normocephalic, atraumatic Eyes: nl conjunctiva, EOMI, nl lids, nl sclera ENMT: nl external ears & nose, nl lips & teeth, mucosa pink and moist Neck: supple, non-tender; No jvd Respiratory: normal air movement; No congested cough, No labored breathing Cardiovascular: nl pulses; No edema Gastrointestinal: soft, distended (Minimal), nontender Genitourinary - Female: nl external genitalia Musculoskeletal: nl extremities to inspection, nl gait and stance Extremities: normal pulses Neurological: nl mental status, nl speech, nl strength Skin: No rash or lesions Lymph: nl lymph nodes Results Result Diagram: 11/10/18 0511 11/11/18 0605 SURENDRA CALDERÓN NP Nov 11, 2018 18:04
[2018-11-12 02:34] VITALS: BP 119/66; PULSE 54; RESP 18
[2018-11-12] MEDS: SOD CHLORIDE 0.45% 1,000 ML IV SCH ×2 (03:30→04:58)
[2018-11-12] MEDS: PIPER-TAZO 3.375 GM IV (PMX) 100 ML IVPB SCH ×3 (04:58→20:33)
[2018-11-12] MEDS: ACETAMINOPHEN 325 MG TAB PO PRN ×2 (05:05→20:40)
[2018-11-12 07:20] VITALS: BP 118/68; PULSE 55; RESP 18
[2018-11-12] MEDS: morphine 2 MG INJ IV PRN (10:27)
[2018-11-12] MEDS: HEPARIN 5,000 UNIT/1 ML VIAL SC SCH (10:33)
[2018-11-12] MEDS ORDERED: KETOROLAC 30 MG INJ IV PRN (11:30)
[2018-11-12] MEDS: SENNA TAB PO SCH ×2 (12:10→20:32)
[2018-11-12] MEDS: HYDROCODONE/APAP (5/325) TAB PO PRN ×2 (12:10→18:13)
[2018-11-12] MEDS: DOCUSATE SODIUM 100 MG CAP PO SCH ×2 (12:10→20:32)
--- NOTE | 2018-11-12 12:15 | PN ---
Date/Time of Note Date/Time of Note DATE: 11/12/18 TIME: 12:12 Assessment/Plan Lines/Catheters IV Catheter Type (from [facility]): Peripheral IV Phillips in Place (from [facility]): No Assessment/Plan Chief Complaint/Hosp Course 1. Recurrent pancreatitis: Likely 2/2 gallstones; imaging: calcified stone and sludge within the gallbladder, dilated common bile and hepatic ducts, as well as acute pancreatitis with phlegmon in pancreatic bed, mesentery, left anterior pararenal space; status post ERCP with Sphincterotomy, balloon dilatation and sweeping and stent placement: Drained pus from CBD -Low-fat low-cholesterol diet -abx 2. Symptomatic cholelithiasis: -Eventual cholecystectomy once #1 (phlegmon) resolved> outpatient surgery -Pain management as needed 3. Elevated direct bilirubin with transaminitis: -As above -Trend 4. Leukocytosis: Likely 2/2 #1 resolved -As above -Trend 5.Mild hepatomegaly with fatty liver -Highly encourage weight loss -Diet and exercise optimization 6. Severe obesity BMI: 38 -diet and exercise optimization -encourage weight loss Thank you. Patient seen and examined in collaboration with Dr. Nish Wiley. Subjective 24 Hr Interval Summary Intermittent abdominal pain with food. Improved with medications. No fevers, chills, sob, congested cough, cp, palpitations, olivares, dizziness, nausea, vomiting, diarrhea, dysuria. Exam/Review of Systems Vital Signs Vitals Vital Signs Date Temp Pulse Resp B/P (MAP) Pulse Ox O2 O2 Flow FiO2 Time Delivery Rate 11/12/18 98.4 55 18 118/68 100 Room Air 07:20 (85) 11/10/18 2.0 21:45 Intake and Output 11/11/18 11/11/18 11/12/18 1515:00 23:00 07:00 IntakeIntake Total 100 ml 1030 ml 550 ml BalanceBalance 100 ml 1030 ml 550 ml Exam Free Text/Dictation Constitutional: alert, oriented, obese Psych: nl mood/affect; No anxiety Head: normocephalic, atraumatic Eyes: nl conjunctiva, EOMI, nl lids, nl sclera ENMT: nl external ears & nose, nl lips & teeth, mucosa pink and moist Neck: supple, non-tender; No jvd Respiratory: normal air movement; No congested cough, No labored breathing Cardiovascular: nl pulses; No edema Gastrointestinal: soft, distended (Minimal), nontender Genitourinary - Female: nl external genitalia Musculoskeletal: nl extremities to inspection, nl gait and stance Extremities: normal pulses Neurological: nl mental status, nl speech, nl strength Skin: No rash or lesions Lymph: nl lymph nodes Results Result Diagram: 11/12/18 0439 11/12/18 0439 SURENDRA CALDERÓN NP Nov 12, 2018 12:15
--- NOTE | 2018-11-12 14:49 | PN ---
Date/Time of Note Date/Time of Note DATE: 11/12/18 TIME: 14:46 Assessment/Plan VTE Prophylaxis Risk score (from Nsg)>0 risk: 2 Pharmacological prophylaxis: LMWH Lines/Catheters IV Catheter Type (from Nrsg): Peripheral IV Urinary Cath still in place: No Assessment/Plan Hospital Course 58 yo female with acute pancreatitis likely from gallstone with CT showing possible phlegmon - Continue IV fluids - Zosyn given finding of phlegmon -Status post ERCP with evidence of a stricture in the distal common bile duct with drainage of pus from the bile duct and CBD stent placement -No cholecystectomy as inpatient secondary to persistent phlegmon, patient to have surgery done as an outpatient - Pain control -Advance diet Prophylaxis: Lovenox DC planning: Patient still in pain, continue IV antibiotics and advance diet, possible DC in 1-2 days Result Diagram: 11/12/18 0439 11/12/18 0439 Results 24hrs Laboratory Tests Test 11/12/18 04:39 White Blood Count 9.6 Red Blood Count 3.41 L Hemoglobin 10.7 L Hematocrit 32.8 L Mean Corpuscular Volume 96.2 Mean Corpuscular Hemoglobin 31.4 Mean Corpuscular Hemoglobin Concent 32.6 Red Cell Distribution Width 14.1 Platelet Count 144 # Mean Platelet Volume 10.8 H Immature Granulocytes % 0.600 H Neutrophils % 81.4 H Lymphocytes % 12.5 L Monocytes % 5.3 Eosinophils % 0.0 Basophils % 0.2 Nucleated Red Blood Cells % 0.0 Immature Granulocytes # 0.060 H Neutrophils # 7.8 H Lymphocytes # 1.2 Monocytes # 0.5 Eosinophils # 0.0 Basophils # 0.0 Nucleated Red Blood Cells # 0.0 Sodium Level 140 Potassium Level 3.6 Chloride Level 109 Carbon Dioxide Level 24 Anion Gap 7 Blood Urea Nitrogen 11 Creatinine 0.51 Est Glomerular Filtrat Rate mL/min > 60 Glucose Level 98 Calcium Level 8.5 Phosphorus Level 2.8 Magnesium Level 2.1 Total Bilirubin 0.4 Direct Bilirubin 0.00 Indirect Bilirubin 0.4 Aspartate Amino Transf (AST/SGOT) 41 Alanine Aminotransferase (ALT/SGPT) 76 H Alkaline Phosphatase 93 Total Protein 6.1 Albumin 3.0 L Globulin 3.10 Albumin/Globulin Ratio 0.96 Lipase 162 Subjective 24 Hr Interval Summary Gastrointestinal: pain Exam/Review of Systems Exam Vitals Vital Signs Date Temp Pulse Resp B/P (MAP) Pulse Ox O2 O2 Flow FiO2 Time Delivery Rate 11/12/18 98.4 55 18 118/68 100 Room Air 07:20 (85) 11/10/18 2.0 21:45 Intake and Output 11/11/18 11/11/18 11/12/18 1515:00 23:00 07:00 IntakeIntake Total 100 ml 1030 ml 550 ml BalanceBalance 100 ml 1030 ml 550 ml Constitutional: alert, oriented Respiratory: clear to auscultation Cardiovascular: regular rate and rhythm Gastrointestinal: soft, tender; No distended Musculoskeletal: nl extremities to inspection Results Results 24hrs Laboratory Tests Test 11/12/18 04:39 White Blood Count 9.6 Red Blood Count 3.41 L Hemoglobin 10.7 L Hematocrit 32.8 L Mean Corpuscular Volume 96.2 Mean Corpuscular Hemoglobin 31.4 Mean Corpuscular Hemoglobin Concent 32.6 Red Cell Distribution Width 14.1 Platelet Count 144 # Mean Platelet Volume 10.8 H Immature Granulocytes % 0.600 H Neutrophils % 81.4 H Lymphocytes % 12.5 L Monocytes % 5.3 Eosinophils % 0.0 Basophils % 0.2 Nucleated Red Blood Cells % 0.0 Immature Granulocytes # 0.060 H Neutrophils # 7.8 H Lymphocytes # 1.2 Monocytes # 0.5 Eosinophils # 0.0 Basophils # 0.0 Nucleated Red Blood Cells # 0.0 Sodium Level 140 Potassium Level 3.6 Chloride Level 109 Carbon Dioxide Level 24 Anion Gap 7 Blood Urea Nitrogen 11 Creatinine 0.51 Est Glomerular Filtrat Rate mL/min > 60 Glucose Level 98 Calcium Level 8.5 Phosphorus Level 2.8 Magnesium Level 2.1 Total Bilirubin 0.4 Direct Bilirubin 0.00 Indirect Bilirubin 0.4 Aspartate Amino Transf (AST/SGOT) 41 Alanine Aminotransferase (ALT/SGPT) 76 H Alkaline Phosphatase 93 Total Protein 6.1 Albumin 3.0 L Globulin 3.10 Albumin/Globulin Ratio 0.96 Lipase 162 Medications Medication Current Medications Sodium Chloride 1,000 ml @ 150 mls/hr Q6H40M IV Last administered on 11/12/18at 04:58; Admin Dose 150 MLS/HR; Start 11/09/18 at 15:30 IV Flush (NS 3 ml) 3 ml PER PROTOCOL IV ; Start 11/09/18 at 15:30 Ondansetron HCl (Zofran Inj) 4 mg Q6H PRN IV NAUSEA/VOMITING Last administered on 11/10/18 15:46; Admin Dose 4 MG; Start 11/09/18 at 15:30 Heparin Sodium (Porcine) (Heparin (5000 Units/1ml)) 5,000 unit Q12 SC Last administered on 11/12/18 10:33; Admin Dose 5,000 UNIT; Start 11/09/18 at 21:00 Piperacillin Sod/ Tazobactam Sod 100 ml @ 200 mls/hr Q8 IVPB Last administered on 11/12/18 14:09; Admin Dose 200 MLS/HR; Start 11/09/18 at 16:30 Acetaminophen (Tylenol Tab) 650 mg Q6H PRN PO MILD PAIN(1-3)OR ELEVATED TEMP Last administered on 11/12/18 05:05; Admin Dose 650 MG; Start 11/11/18 at 16:50 Acetaminophen/ Hydrocodone Bitart ([place] (5/325)) 1 tab Q6H PRN PO MODERATE PAIN LEVEL 4-6 Last administered on 11/12/18 12:10; Admin Dose 1 TAB; Start 11/12/18 at 11:00 Ketorolac Tromethamine (Toradol) 30 mg Q6H PRN IV PAIN LEVEL 1-3; Start 11/12/18 at 11:30; Stop 11/15/18 at 11:29 Docusate Sodium (Colace) 200 mg BID PO Last administered on 11/12/18 12:10; Admin Dose 200 MG; Start 11/12/18 at 13:00 Senna (Senokot) 2 tab BID PO Last administered on 11/12/18 12:10; Admin Dose 2 TAB; Start 11/12/18 at 13:00 KORIN HAINES Nov 12, 2018 14:49
[2018-11-12 15:36] VITALS: BP 133/65; PULSE 62; RESP 20
[2018-11-12 20:45] VITALS: BP 122/78; PULSE 66; RESP 16
[2018-11-13 01:43] VITALS: BP 124/74; PULSE 71; RESP 17
[2018-11-13] MEDS: HYDROCODONE/APAP (5/325) TAB PO PRN (02:46)
[2018-11-13] MEDS: PIPER-TAZO 3.375 GM IV (PMX) 100 ML IVPB SCH (05:30)
[2018-11-13 07:59] VITALS: BP 117/68; PULSE 61; RESP 18
[2018-11-13] MEDS: SENNA TAB PO SCH (08:16)
[2018-11-13] MEDS: DOCUSATE SODIUM 100 MG CAP PO SCH (08:17)
[2018-11-13] MEDS ORDERED: ENOXAPARIN 40 MG/0.4 ML SYG SC SCH (09:00)
[2018-11-13] MEDS ORDERED: POTASSIUM CHLORIDE (SR) 20 MEQ TAB PO STA (10:13)
[2018-11-13] MEDS ORDERED: HYDR-3601 PO (12:23)
[2018-11-13] MEDS ORDERED: DOCU-144 PO (12:23)
--- NOTE | 2018-11-13 12:24 | PDOCDIS ---
Discharge Instructions CONDITION [id number] Patient Condition: Vuima1f Good HOME CARE INSTRUCTIONS: Dzlih2On Diet Instructions: [id number] Reduced Calorie ACTIVITY: [id number] Activity Restrictions: Rpitt1p No Restrictions [id number] Bathing Restrictions: [id number] Shower FOLLOW UP/APPOINTMENTS Follow-up Plan Follow-up with Dr. Wiley of surgery in 1-2 weeks, follow-up with Dr. Ferguson of GI in 2-3 weeks KORIN HAINES Nov 13, 2018 12:24
--- NOTE | 2018-11-13 13:08 | PN ---
Date/Time of Note Date/Time of Note DATE: 11/13/18 TIME: 13:02 Assessment/Plan Lines/Catheters [facility] IV Phillips in Place [facility] No Assessment/Plan Chief Complaint/Hosp Course 1. Recurrent pancreatitis: Likely 2/2 gallstones; imaging: calcified stone and sludge within the gallbladder, dilated common bile and hepatic ducts, as well as acute pancreatitis with phlegmon in pancreatic bed, mesentery, left anterior pararenal space; status post ERCP with Sphincterotomy, balloon dilatation and sweeping and stent placement: Drained pus from CBD -Low-fat low-cholesterol diet -abx> please discharge with 4 more days of oral antibiotics. To follow in office for eventual outpatient surgery 2. Symptomatic cholelithiasis: -Eventual cholecystectomy once #1 (phlegmon) resolved> outpatient surgery -Pain management as needed 3. Elevated direct bilirubin with transaminitis: Resolved -As above 4. Leukocytosis: Likely 2/2 #1 resolved -As above 5.Mild hepatomegaly with fatty liver -Highly encourage weight loss -Diet and exercise optimization 6. Severe obesity BMI: 38 -diet and exercise optimization -encourage weight loss Thank you. Patient seen and examined in collaboration with Dr. Nish Wiley. Subjective 24 Hr Interval Summary Abdominal pain improved. No fevers, chills, sob, congested cough, cp, palpitations, olivares, dizziness, nausea, vomiting, diarrhea, dysuria. Exam/Review of Systems Vital Signs Vitals Vital Signs Date Temp Pulse Resp B/P (MAP) Pulse Ox O2 O2 Flow FiO2 Time Delivery Rate 11/13/18 98.0 61 18 117/68 94 Room Air 07:59 (84) 11/10/18 2.0 21:45 Intake and Output 11/12/18 11/12/18 11/13/18 1515:00 23:00 07:00 IntakeIntake Total 1240 ml 460 ml 380 ml BalanceBalance 1240 ml 460 ml 380 ml Exam Free Text/Dictation Constitutional: alert, oriented, obese Psych: nl mood/affect; No anxiety Head: normocephalic, atraumatic Eyes: nl conjunctiva, EOMI, nl lids, nl sclera ENMT: nl external ears & nose, nl lips & teeth, mucosa pink and moist Neck: supple, non-tender; No jvd Respiratory: normal air movement; No congested cough, No labored breathing Cardiovascular: nl pulses; No edema Gastrointestinal: soft, distended (Minimal), nontender Genitourinary - Female: nl external genitalia Musculoskeletal: nl extremities to inspection, nl gait and stance Extremities: normal pulses Neurological: nl mental status, nl speech, nl strength Skin: No rash or lesions Lymph: nl lymph nodes Results Result Diagram: 11/12/18 0439 11/13/18 0445 SURENDRA CALDERÓN NP Nov 13, 2018 13:07
[2018-11-13 14:39] VITALS: BP 109/62; PULSE 70; RESP 18
--- NOTE | 2018-11-13 15:16 | DS ---
Date/Time of Note Date/Time of Note DATE: 11/13/18 TIME: 15:14 Discharge Summary Admission/Discharge Info Admit Date/Time Nov 09, 2018 at 14:44 Discharge Date/Time November 13, 2018 Discharge Diagnosis 1. Acute pancreatitis secondary to gallstone with phlegmon - Continue IV fluids -Status post Zosyn with no further evidence of sepsis -Status post ERCP with evidence of a stricture in the distal common bile duct with drainage of pus from the bile duct and CBD stent placement -No cholecystectomy as inpatient secondary to persistent phlegmon, patient to have surgery done as an outpatient - Pain control -Tolerating diet 2. Morbid obesity -Lifestyle changes Patient Condition: Good Hospital Course Patient is a 58 yo female with acute pancreatitis likely from gallstone with CT showing possible phlegmon. Patient was seen by GI and underwent ERCP which kranthi wed evidence of stricture in the distal common bile duct with drainage of pus from the bile duct and CBD stent placement. Patient did receive IV antibiotics for her phlegmon and patient had no evidence of sepsis. Patient was seen by surgery recommendation was for outpatient surgery considering persistent phlegmon. Patient's abdominal pain had improved and was tolerating a p.o. diet. On the day of discharge patient's vitals, labs of exam are stable. Home Meds Active Scripts Docusate Sodium* (Colace*) 100 Mg Capsule, 200 MG PO BID, #60 CAP Prov:KORIN HAINES 11/13/18 Hydrocodone Bit-Acetaminophen (Hydrocodone Bit-APAP) 5-325MG Tablet, 1 TAB PO Q4 PRN for MODERATE PAIN LEVEL 4-6, #30 TAB Prov:KORIN HAINES 11/13/18 Reported Medications Minocycline Hcl* (Minocycline Hcl*) 100 Mg Capsule, 100 MG PO BID, CAP 11/09/18 Discontinued Reported Medications Metronidazole* (Metronidazole*) 250 Mg Tablet, 250 MG PO QID, TAB 11/09/18 Follow-up Plan Follow-up with Dr. Wiley of surgery in 1-2 weeks, follow-up with Dr. Ferguson of GI in 2-3 weeks Primary Care Provider Not On Staff Doctor Time spent on discharge: > 30 minutes KORIN HAINES Nov 13, 2018 15:16
== END 2018-11-13 17:20 | disposition home or self-care (01) | DRG 444 ==
LOC: E/R 12:05 → 6WM 14:44 → EDBEDREQ 19:00 → MS1 11-11 13:21
PROVIDERS: ADMIT Internal Medicine; ATTEND Internal Medicine
PROC: 0F798DZ Dilation of Common Bile Duct with Intraluminal Device, Via Natural or Artificial Opening Endoscopic (ICD-10-PCS; 2018-11-10)
PROC: 0FC98ZZ Extirpation of Matter from Common Bile Duct, Via Natural or Artificial Opening Endoscopic (ICD-10-PCS; principal; 2018-11-10 19:00)
DX: K80.51 Calculus of bile duct without cholangitis or cholecystitis with obstruction (principal); K85.10 Biliary acute pancreatitis without necrosis or infection; K76.0 Fatty (change of) liver, not elsewhere classified; E66.01 Morbid (severe) obesity due to excess calories; Z68.38 Body mass index [BMI] 38.0-38.9, adult; K80.70 Calculus of gallbladder and bile duct without cholecystitis without obstruction; E11.9 Type 2 diabetes mellitus without complications; Z79.4 Long term (current) use of insulin
CPT/HCPCS: 36415; 71045; 74176; 74181; 74330; 76705; 80048; 80053; 80076; 82550; 82553; 83036; 83605; 83615; 83690; 83735; 84100; 84484; 85025; 85610; 86850; 86900; 86901; 87040; 93005; 93306; 96361; 96374; 96375; C2617; J0690; J1100; J1644; J1650; J1885; J2250; J2270; J2405; J2543; J2710; J3010; J7030; Q9967